=== PATIENT | female | born 1980 | race Caucasian/White ===

== ENCOUNTER 2018-10-26 13:42 | Emergency (ER) | payer OTHER ==
[~2018-10-26] VITALS: Ht 152.4 cm; Wt 56.7 kg
[2018-10-26] MEDS ORDERED: PERIDEX 0.12%473 M1 SWISH&SPIT (14:06)
[2018-10-26] MEDS ORDERED: AMOXICILLIN 50500 MG PO (14:06)
[2018-10-26] MEDS ORDERED: ACETAMINOPHEN-1 EAC1 PO (14:06)
[2018-10-26 14:11] VITALS: BP 133/90
== END 2018-10-26 14:12 | disposition home or self-care (01) ==
LOC: M.ERS 13:42
DX: K05.10 Chronic gingivitis, plaque induced (principal)